=== PATIENT | male | born 1950 | race Caucasian/White ===

== ENCOUNTER 2017-10-03 13:08 | Emergency (ER) | payer MEDICARE ==
--- NOTE | 2017-10-03 15:35 | RAD ---
THREE VIEWS LEFT ANKLE: Indication: Trauma. Comparison: None. FINDINGS: There is an ossific density seen distal to the lateral malleolus, likely sequellae of remote trauma. No definite acute fracture is evident. There is an overlying surface artifact from left ankle wrap wh ich limits image detail. IMPRESSION: No displaced fracture demonstrated. POS: [facility]
--- NOTE | 2017-10-03 15:36 | RAD ---
THREE VIEWS LEFT FOOT: History: Increased pain and swelling. FINDINGS: AP, lateral, and oblique views obtained. No evidence of left foot fractures, subluxations, or bony lesions seen. IMPRESSION: Normal three views left foot. POS: [facility]
== END 2017-10-03 13:50 | disposition home or self-care (01) ==
LOC: ERS 13:08
DX: S90.32XA Contusion of left foot, initial encounter (principal); I25.2 Old myocardial infarction; E78.5 Hyperlipidemia, unspecified; I10 Essential (primary) hypertension; F17.210 Nicotine dependence, cigarettes, uncomplicated; W01.0XXA Fall on same level from slipping, tripping and stumbling without subsequent striking against object, initial encounter
CPT/HCPCS: 99406

== ENCOUNTER 2018-07-28 14:02 | Outpatient (CLI) | payer MEDICARE ==
--- NOTE | 2018-07-28 14:37 | RAD ---
CHEST 2 VIEWS: Date: 07/28/18 HISTORY: Cough and shortness of breath. COMPARISON: Radiograph dated 12/08/15. FINDINGS: Mild blunting left lateral costophrenic sulcus. Lungs are mildly hyperinflated with some scarring in the lower lobes. Multiple midline sternotomy wires. Cardiac silhouette and mediastinal contours within normal limits. IMPRESSION: Chronic findings. No acute intrathoracic abnormality. POS: [facility]
== END 2018-07-28 14:03 | disposition home or self-care (01) ==
LOC: BICRAD 14:02
PROVIDERS: ATTEND Family Medicine
DX: R06.01 Orthopnea (principal); R05 Cough
CPT/HCPCS: 71046

== ENCOUNTER 2018-08-15 08:21 | Emergency (ER) | payer MEDICARE ==
[2018-08-15 09:23] LABS: #Basophils 0.1 thou/uL (0.0-0.2); #Eosinphils 0.3 thou/uL (0.0-0.7); #Lymphocytes 2.8 thou/uL (1.20-3.40); #Monocytes 0.9 thou/uL (0.11-0.59); #Neutrophils 5.4 thou/uL (1.40-6.50); %Basophils 0.8 % (0.0-1.0); %Eosinophils 3.1 % (0.0-10.0); %Lymphocytes 29.8 % (21.0-51.0); %Monocytes 9.6 % (0.0-10.0); %Neutrophils 56.6 % (42.0-75.0); Hemoglobin 16.7 g/dL (14.0-18.0); Mean Corpuscular HGB CONC 32.2 g/dL (32.0-36.0); Mean Corpuscular Volume 99.4 fL (78.0-98.0); Mean Platelet Volume 6.8 fL (7.4-10.4); Platelet Count 192 thou/uL (130-400); RBC Distribution Width 13.3 % (11.5-14.5); Red Blood Cell (RBC) Count 5.22 mill/uL (4.70-6.10); White Blood Cell (WBC) Count 9.5 thou/uL (4.8-10.8)
[2018-08-15 09:44] LABS: ALT (SGPT) 13 U/L (8-55); AST (SGOT) 16 U/L (5-34); Albumin 3.9 g/dL (3.4-4.8); Alkaline Phosphatase 78 U/L (40-150); Anion Gap 13 mmol/L (10-20); BUN (Urea Nitrogen) 14 mg/dL (8.4-25.7); Bilirubin, Total 0.5 mg/dL (0.2-1.2); Calc. Creatinine Clearance 0 mL/min (70-130); Carbon Dioxide 26 mmol/L (23-31); Chloride 104 mmol/L (98-107); Estimated GFR-MDRD 58; Globulin 3.2 g/dL (2.4-3.5); Glucose 91 mg/dL (80-115); Potassium 4.2 mmol/L (3.5-5.1); Protein, Total 7.1 g/dL (5.8-8.1); Sodium 139 mmol/L (136-145)
[2018-08-15] MEDS ORDERED: predniSONE 20 MG TAB ONE (10:03)
--- NOTE | 2018-08-15 10:22 | RAD ---
CHEST ONE VIEW: HISTORY: Pneumonia and COPD. COMPARISON: 07/28/2018 FINDINGS: There is scarring in both lower lobes. The lungs are hyperinflated. Multiple midline sternotomy wir es. The cardiac silhouette is similar. No acute osseous abnormality. IMPRESSION: Similar examination of the chest. No acute intrathoracic abnormality. POS: [facility]
== END 2018-08-15 10:57 | disposition home or self-care (01) ==
LOC: ERS 08:21
DX: J44.9 Chronic obstructive pulmonary disease, unspecified (principal); I25.10 Atherosclerotic heart disease of native coronary artery without angina pectoris; I25.2 Old myocardial infarction; I10 Essential (primary) hypertension; F17.210 Nicotine dependence, cigarettes, uncomplicated; Z71.6 Tobacco abuse counseling
CPT/HCPCS: 71045; 80053; 84484; 85025; 93005; 94640; 99406; J7620

== ENCOUNTER 2019-05-06 13:37 | Emergency (ER) | payer MEDICARE | END 2019-05-06 14:18 | disposition home or self-care (01) | LOC: ERS 13:37 | DX: M25.531 Pain in right wrist (principal); I25.10 Atherosclerotic heart disease of native coronary artery without angina pectoris; I25.2 Old myocardial infarction; E78.5 Hyperlipidemia, unspecified; I10 Essential (primary) hypertension; F17.210 Nicotine dependence, cigarettes, uncomplicated | CPT/HCPCS: 99281 ==

== ENCOUNTER 2020-01-15 09:38 | Outpatient (CLI) | payer MEDICARE ==
--- NOTE | 2020-01-15 11:08 | CT ---
CT CHEST WITHOUT CONTRAST: Axial tomograms obtained with multiplanar reconstruction. Low-dose screening protocol was followed. INDICATION: History of tobacco use. COPD. COMPARISON: No comparison. FINDINGS: There is hyperexpansion. There are chronic lung parenchymal changes with emphysematous changes. Num erous small bullae and blebs are seen along the pleural surface anterolaterally. There is interstiti al thickening in the periphery of both lungs. Tiny calcified granuloma in the right lung base measur ing 3 mm. Tiny calcified granuloma in the left lower lobe also measuring in the 3-4 mm range. No evidence of solid pulmonary mass or nodule. The mediastinum is unremarkable. Images through the upper abdomen unremarkable. Osseous structures show degenerative spine changes and postop sternotomy change. IMPRESSION: Chronic lung changes with emphysematous changes including centrilobular and paraseptal emphysema. In terstitial thickening and fibrotic stranding prominent in the lung bases. Scattered calcified granul jaswinder. Lung RADS 2, recommend annual low-dose screening chest CT. POS: [facility]
== END 2020-01-15 09:39 | disposition home or self-care (01) ==
LOC: BICCT 09:38
PROVIDERS: ATTEND Family Medicine
DX: Z12.2 Encounter for screening for malignant neoplasm of respiratory organs (principal); F17.210 Nicotine dependence, cigarettes, uncomplicated; J43.9 Emphysema, unspecified; J84.10 Pulmonary fibrosis, unspecified; R91.8 Other nonspecific abnormal finding of lung field
CPT/HCPCS: G0297

== ENCOUNTER 2020-05-29 08:38 | Outpatient (CLI) | payer MEDICARE ==
--- NOTE | 2020-05-29 09:57 | ULT ---
ABDOMNIAL AORTIC ULTRASOUND: HISTORY: Abdominal aortic aneurysm screening. FINDINGS: The AP dimension of the proximal aorta is 3 cm, mid aorta 2.8, and distal 2.3 cm. There is some mild dilatation of both common iliac arteries, the right measuring 1.6 cm and the left measuring 2 cm in size. IMPRESSION: 1. No evidence of abdominal aortic aneurysm. 2. 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 POS: [facility]
== END 2020-05-29 08:39 | disposition home or self-care (01) ==
LOC: BICULT 08:38
PROVIDERS: ATTEND Family Medicine
DX: Z13.6 Encounter for screening for cardiovascular disorders (principal); I72.3 Aneurysm of iliac artery
CPT/HCPCS: 36415; 76775; 80053; 80061

== ENCOUNTER 2020-07-11 08:00 | Outpatient (CLI) | payer MEDICARE ==
[2020-07-12 00:15] LABS: SARS-CoV-2 PCR by NAA Not Detected (NotDetected)
== END 2020-07-11 08:01 | disposition home or self-care (01) ==
LOC: LABBT 08:00
PROVIDERS: ATTEND Internal Medicine Gastroenterology
DX: Z01.812 Encounter for preprocedural laboratory examination (principal); Z12.11 Encounter for screening for malignant neoplasm of colon; Z20.822 Contact with and (suspected) exposure to COVID-19
CPT/HCPCS: U0003; U0005; 87635

== ENCOUNTER 2020-07-16 06:11 | Day surgery (SDC) | payer MEDICARE ==
[2020-07-15 12:18] VITALS: BMI 23.6
--- NOTE | 2020-07-15 22:06 | HP ---
HISTORY OF PRESENT ILLNESS: Mr. Pete Almeida is a 70-year-old male comes for a colonoscopy for colon cancer screening. The patient had no specific GI symptoms. Bowel movements are regular. FAMILY HISTORY: He has no family history of colon cancer. ALLERGIES: NONE. SOCIAL HISTORY: Smoker. He smokes a packet of cigarettes per day. No alcohol intake. PAST MEDICAL HISTORY: 1. Hypertension. 2. Hyperlipidemia. 3. COPD. 4. Status post coronary artery bypass graft. 5. Chronic back pain. 6. History of heart murmur. 7. Depression. 8. Arthritis. PHYSICAL EXAMINATION: VITAL SIGNS: Weight is 161 pounds, pulse is 74, and blood pressure is 140/80. HEENT: Conjunctivae are clear. CARDIOVASCULAR: Normal heart sounds. LUNGS: Clear to auscultation. ABDOMEN: Soft. No organomegaly. No tenderness. No masses. ADMITTING DIAGNOSIS: A 70-year-old male comes for a colonoscopy for colon cancer screening. Job ID: [id number]
[2020-07-16] MEDS ORDERED: PROPOFOL 200 MG/20 ML VIAL ONE (09:03)
[2020-07-16] MEDS ORDERED: Midazolam HCl 2 mg/2 ml Vial ONE (09:11)
--- NOTE | 2020-07-16 11:23 | OP ---
DATE OF PROCEDURE: 07/16/2020 PROCEDURE PERFORMED: Colonoscopy with polypectomy. PREOPERATIVE DIAGNOSIS: Colon cancer. POSTOPERATIVE DIAGNOSES: 1. Sessile hepatic flexure polyp measuring 1 cm. 2. Left-sided diverticular disease. 3. Hemorrhoids. 4. Poor prep. Although water was irrigated and washed out, some of the areas could not be visualized. DESCRIPTION OF PROCEDURE: The patient was placed on his left lateral position and was given sedation by Anesthesia Department. A rectal exam was done. The scope was advanced into the rectum. No lesions felt on rectal exam. A [employer]ax video colonoscope was introduced into the rectum and advanced all the way to the cecum. The prep was not very satisfactory. He had pockets of stool right from the rectum all the way to the right colon. Although water was irrigated and washed out, some of the areas could not be seen. The ileocecal area, cecum, ascending colon, no pathology seen except for some retained stool. 1 cm size sessile polyp of the hepatic flexure removed with snare cautery with good hemostasis. Withdrawal of scope in the hepatic flexure down the transverse colon, splenic flexure, descending colon, sigmoid colon showed no pathology except for scattered left-sided diverticula. Retroflexion of scope in the rectum showed hemorrhoids. DISCHARGE PLANNING: This is a 70-year-old male referred to me by Dr. Frey for a colonoscopy for colon cancer screening. He underwent colonoscopy with polypectomy. It revealed only a sessile polyp in hepatic flexure. Overall, the quality of prep was not very good. DISCHARGE RECOMMENDATIONS: The patient advised to call me if he develops abdominal pain, hematochezia, or fever. Consider repeat colonoscopy either later this year or early next year. Job ID: [id number]
== END 2020-07-16 10:45 | disposition home or self-care (01) ==
LOC: SDC 06:11
PROVIDERS: ATTEND Internal Medicine Gastroenterology
PROC: 0DBL8ZZ Excision of Transverse Colon, Via Natural or Artificial Opening Endoscopic (ICD-10-PCS; principal; 2020-07-16)
DX: Z12.11 Encounter for screening for malignant neoplasm of colon (principal); K63.5 Polyp of colon; K57.30 Diverticulosis of large intestine without perforation or abscess without bleeding; K64.9 Unspecified hemorrhoids; F17.210 Nicotine dependence, cigarettes, uncomplicated; I10 Essential (primary) hypertension; E78.5 Hyperlipidemia, unspecified; J44.9 Chronic obstructive pulmonary disease, unspecified; G89.29 Other chronic pain; M54.9 Dorsalgia, unspecified; F32.9 Major depressive disorder, single episode, unspecified; M19.90 Unspecified osteoarthritis, unspecified site; Z79.82 Long term (current) use of aspirin; Z79.899 Other long term (current) drug therapy; Z95.1 Presence of aortocoronary bypass graft
CPT/HCPCS: 88305; J2250; J2704

== ENCOUNTER 2021-02-26 15:14 | Outpatient (CLI) | payer MEDICARE | END 2021-02-26 15:15 | disposition home or self-care (01) | LOC: BICCT 15:14 | PROVIDERS: ATTEND Family Medicine | DX: Z12.2 Encounter for screening for malignant neoplasm of respiratory organs (principal); F17.219 Nicotine dependence, cigarettes, with unspecified nicotine-induced disorders; J43.9 Emphysema, unspecified | CPT/HCPCS: 71271 ==

== ENCOUNTER 2021-05-14 09:21 | Outpatient (CLI) | payer MEDICARE | END 2021-05-14 09:22 | disposition home or self-care (01) | LOC: BICRAD 09:21 | PROVIDERS: ATTEND Family Medicine | DX: R05.9 Cough, unspecified (principal) | CPT/HCPCS: 71046 ==

== ENCOUNTER 2022-06-23 10:30 | Outpatient (CLI) | payer MEDICARE | END 2022-06-23 10:31 | disposition home or self-care (01) | LOC: BICCT 10:30 | PROVIDERS: ATTEND Family Medicine | DX: Z12.2 Encounter for screening for malignant neoplasm of respiratory organs (principal); F17.219 Nicotine dependence, cigarettes, with unspecified nicotine-induced disorders | CPT/HCPCS: 36415; 71271; 80053; 80061; 81001; 85025 ==

== ENCOUNTER 2022-09-15 13:32 | Outpatient (CLI) | payer MEDICARE | END 2022-09-15 13:33 | disposition home or self-care (01) | LOC: ULT 13:32 | PROVIDERS: ATTEND Family Medicine | DX: R09.89 Other specified symptoms and signs involving the circulatory and respiratory systems (principal) | CPT/HCPCS: 93880 ==

== ENCOUNTER 2023-01-11 09:18 | Observation (INO) | payer MEDICARE ==
[2023-01-11 10:07] LABS: #Basophils 0.1 thou/uL (0.0-0.2); #Eosinphils 0.2 thou/uL (0.0-0.7); #Monocytes 1.1 thou/uL (0.11-0.59); #Neutrophils 7.1 thou/uL (1.40-6.50); %Basophils 0.5 % (0.0-1.0); %Eosinophils 1.9 % (0.0-10.0); %Lymphocytes 27.5 % (21.0-51.0); %Monocytes 9.6 % (0.0-10.0); %Neutrophils 60.2 % (42.0-75.0); Hemoglobin 15.2 g/dL (14.0-18.0); Mean Corpuscular HGB CONC 33.4 g/dL (32.0-36.0); Mean Corpuscular Hemoglobin 31.4 pg (27.0-31.0); Mean Platelet Volume 9.2 fL (7.4-10.4); Platelet Count 202 10x3/uL (130-400); Red Blood Cell (RBC) Count 4.84 mill/uL (4.70-6.10); White Blood Cell (WBC) Count 11.8 10x3/uL (4.8-10.8)
[2023-01-11 10:34] LABS: ALT (SGPT) 12 U/L (8-55); AST (SGOT) 17 U/L (5-34); Alkaline Phosphatase 76 U/L (40-110); Anion Gap 10 mmol/L (10-20); BUN (Urea Nitrogen) 11 mg/dL (8.4-25.7); Bilirubin, Total 0.5 mg/dL (0.2-1.2); Calc. Creatinine Clearance 0 mL/min (70-130); Calcium 9.6 mg/dL (7.8-10.44); Carbon Dioxide 25 mmol/L (23-31); Chloride 107 mmol/L (98-107); Estimated GFR 78; Glucose 93 mg/dL (83-110); Lipase 17 U/L (8-78); Potassium 4.1 mmol/L (3.5-5.1); Sodium 138 mmol/L (136-145)
[2023-01-11 10:48] LABS: CKMB 2.3 ng/mL (0-6.6)
[2023-01-11 11:51] LABS: Bacteria/HPF None Seen HPF (None Seen); Bilirubin Negative (Negative); Blood, Urine Negative (Negative); CAUTI Indications for Culture Alt mental st,lethar; Clarity Clear (Clear); Glucose, Urine (Dipstick) Normal (Negative); Ketone, Urine Negative (Negative); Leukocyte Negative Leu/uL (Negative); Nitrite Negative (Negative); Protein, Urine (Dipstick) Negative (Neg-Trace); RBC/HPF None Seen HPF (0-3); Specific Gravity, Urine 1.014 (1.002-1.036); Squamous Epithelial None Seen HPF (0-3); Urobilinogen Normal mg/dL (Less than 2); WBC/HPF 0-3 HPF (0-3)
[2023-01-11 11:52] LABS: Urine Culture Reflex No No
[2023-01-11 14:25] LABS: Troponin I 0.018 ng/mL (< 0.028)
[2023-01-11] MEDS ORDERED: Ondansetron ODT 4 MG TAB PO PRN (14:27)
[2023-01-11] MEDS ORDERED: Acetaminophen 325 MG TAB PO PRN (14:27)
[2023-01-11] MEDS ORDERED: Benzonatate 100 MG CAP PO PRN (14:27)
[2023-01-11] MEDS ORDERED: Ipratropium/Albuterol 3 ML NEB NEB PRN (14:27)
[2023-01-11] MEDS ORDERED: Ondansetron PF 4 MG/2 ML Vial IVP PRN (14:27)
[2023-01-11] MEDS ORDERED: Docusate 100 MG CAP PO PRN (14:27)
[2023-01-11] MEDS ORDERED: Electrolyte Replacement Protocol 1 EACH FS SCH (14:30)
[2023-01-11] MEDS ORDERED: cefTRIAXone\\ROCEPHIN 1 GM in Sodium Chloride 0.9% 100 ML IVPB SCH (15:00)
[2023-01-11] MEDS ORDERED: predniSONE 20 MG TAB PO SCH (15:00)
[2023-01-11 17:40] LABS: Troponin I 0.018 ng/mL (< 0.028)
[2023-01-11 18:26] VITALS: BMI 22.5
[2023-01-11] MEDS: Ipratropium/Albuterol 3 ML NEB NEB SCH (18:57)
[2023-01-11] MEDS: Mometasone/Formoterol 200/5 60 PUFF INH SCH (18:58)
[2023-01-12] MEDS: Ipratropium/Albuterol 3 ML NEB NEB SCH ×4 (00:24→18:49)
[2023-01-12 05:47] LABS: #Monocytes 0.3 thou/uL (0.11-0.59); %Lymphocytes 17.7 % (21.0-51.0); Hemoglobin 14.4 g/dL (14.0-18.0); Mean Corpuscular HGB CONC 33.7 g/dL (32.0-36.0); Mean Corpuscular Hemoglobin 31.4 pg (27.0-31.0); Mean Corpuscular Volume 93.2 fl (78.0-98.0); Mean Platelet Volume 9.1 fL (7.4-10.4); Platelet Count 186 10x3/uL (130-400); RBC Distribution Width 16.9 % (11.5-14.5); Red Blood Cell (RBC) Count 4.58 mill/uL (4.70-6.10); White Blood Cell (WBC) Count 8.9 10x3/uL (4.8-10.8)
[2023-01-12 06:12] LABS: Anion Gap 15 mmol/L (10-20); BUN (Urea Nitrogen) 12 mg/dL (8.4-25.7); Calc. Creatinine Clearance 67 mL/min (70-130); Calcium 9.2 mg/dL (7.8-10.44); Carbon Dioxide 18 mmol/L (23-31); Chloride 108 mmol/L (98-107); Estimated GFR 83; Glucose 126 mg/dL (83-110); Magnesium 2.1 mg/dL (1.6-2.6); Potassium 3.9 mmol/L (3.5-5.1); Sodium 137 mmol/L (136-145)
[2023-01-12] MEDS: Mometasone/Formoterol 200/5 60 PUFF INH SCH ×2 (06:36→18:50)
[2023-01-12] MEDS ORDERED: Albuterol 200 PUFF (6.7GM INHALER) INH PRN (08:21)
[2023-01-12] MEDS ORDERED: Non-Formulary Item 1 EACH (Pantoprazole Sodium [Pantoprazole Sodium] 20 MG Tablet.Dr) PO SCH (09:00)
[2023-01-12] MEDS ORDERED: predniSONE 20 MG TAB PO SCH (09:00)
[2023-01-12] MEDS ORDERED: Aspirin Chewable 81 MG TAB PO SCH (09:00)
[2023-01-12] MEDS ORDERED: Rosuvastatin 20 MG TAB PO SCH (09:00)
[2023-01-12] MEDS ORDERED: Ezetimibe 10 MG TAB PO SCH (09:00)
[2023-01-12] MEDS ORDERED: Azithromycin 250 MG TAB PO SCH (09:00)
[2023-01-12 12:19] VITALS: TEMP 98
[2023-01-12 12:46] VITALS: BP 145/68
== END 2023-01-12 19:10 | disposition home or self-care (01) ==
LOC: ERS 09:18 → 2SW 13:25
PROVIDERS: ADMIT Internal Medicine; ATTEND Internal Medicine
DX: R53.1 Weakness (principal); I08.3 Combined rheumatic disorders of mitral, aortic and tricuspid valves; R55 Syncope and collapse; R42 Dizziness and giddiness; F17.210 Nicotine dependence, cigarettes, uncomplicated; I25.10 Atherosclerotic heart disease of native coronary artery without angina pectoris; E78.5 Hyperlipidemia, unspecified; Z95.5 Presence of coronary angioplasty implant and graft; Z79.82 Long term (current) use of aspirin; Z79.899 Other long term (current) drug therapy
CPT/HCPCS: 70450; 71045; 80048; 80053; 81001; 82553; 83690; 83735; 83880; 84443; 84484 ×2; 85025 ×2; 93005; 93306; 94640 ×4; 94760; 96361; 96372; 96374; 99285; G0378 ×3; 36415; 96360; J0696; J1650; J3490; J7512; J7620

== ENCOUNTER 2023-01-19 14:03 | Outpatient (CLI) | payer MEDICARE ==
[2023-01-19 15:17] LABS: #Basophils 0.1 10x3/uL (0.0-0.2); #Eosinphils 0.2 10x3/uL (0.0-0.5); #Monocytes 1.3 10x3/uL (0.0-1.1); %Basophils 0.4 % (0.0-2.0); %Eosinophils 1.6 % (0.0-6.0); %Lymphocytes 32.4 % (18.0-47.0); %Monocytes 9.9 % (0.0-10.0); %Neutrophils 55.2 % (40.0-75.0); Hemoglobin 15.4 g/dL (13.5-17.5); Mean Corpuscular HGB CONC 33.7 g/dL (32.0-36.0); Mean Corpuscular Hemoglobin 30.6 pg (27.0-33.0); Mean Corpuscular Volume 90.9 fl (81.2-95.1); Mean Platelet Volume 9.5 fl (7.4-10.4); Platelet Count 218 10x3/uL (150-450); RBC Distribution Width 16.2 % (11.5-14.5); Red Blood Cell (RBC) Count 5.03 10x6/uL (4.32-5.72); White Blood Cell (WBC) Count 12.8 10x3/uL (3.5-10.5)
[2023-01-19 15:29] LABS: Cardiac Risk 2.6 (Less than 4.5)
[2023-01-19 15:34] LABS: ALT (SGPT) 21 U/L (8-55); AST (SGOT) 19 U/L (5-34); Albumin 4.1 g/dL (3.4-4.8); Alkaline Phosphatase 68 U/L (40-110); Anion Gap 14 mmol/L (10-20); BUN (Urea Nitrogen) 15 mg/dL (8.4-25.7); Bilirubin, Total 0.6 mg/dL (0.2-1.2); Calc. Creatinine Clearance 0 mL/min (70-130); Calcium 9.4 mg/dL (7.8-10.44); Carbon Dioxide 23 mmol/L (23-31); Chloride 108 mmol/L (98-107); Estimated GFR 76; Globulin 2.4 g/dL (2.4-3.5); Glucose 97 mg/dL (83-110); Potassium 4.3 mmol/L (3.5-5.1); Protein, Total 6.5 g/dL (5.8-8.1); Sodium 141 mmol/L (136-145)
== END 2023-01-19 14:04 | disposition home or self-care (01) ==
LOC: LABBT 14:03
PROVIDERS: ATTEND Internal Medicine Cardiovascular Disease
DX: Z01.812 Encounter for preprocedural laboratory examination (principal); I35.0 Nonrheumatic aortic (valve) stenosis
CPT/HCPCS: 80053; 80061; 85025

== ENCOUNTER 2023-01-20 05:26 | Day surgery (SDC) | payer MEDICARE ==
[2023-01-19 14:52] VITALS: BMI 22.7
[2023-01-20] MEDS ORDERED: Heparin 10,000 UNITS/ 10 ML VIAL ONE (06:10)
[2023-01-20] MEDS ORDERED: Midazolam HCl 2 mg/2 ml Vial ONE (06:10)
[2023-01-20] MEDS ORDERED: Lidocaine 1% (PF) 30 ML VIAL ONE (06:10)
[2023-01-20] MEDS ORDERED: Nitroglycerin 50 MG/250 ML BOT 0 ML ONE (06:10)
[2023-01-20] MEDS ORDERED: fentaNYL 50 mcg/mL 1 mL Vial ONE (06:10)
[2023-01-20] MEDS ORDERED: Protamine Sulfate 50 MG/5 ML VIAL ONE (08:41)
[2023-01-20] MEDS ORDERED: Iopamidol 370 76% 100 ML VIAL ONE (13:41)
== END 2023-01-20 15:55 | disposition home or self-care (01) ==
LOC: SDC 05:26
PROVIDERS: ATTEND Internal Medicine Cardiovascular Disease
DX: I35.0 Nonrheumatic aortic (valve) stenosis (principal); R61 Generalized hyperhidrosis; J44.9 Chronic obstructive pulmonary disease, unspecified; R00.1 Bradycardia, unspecified; I25.10 Atherosclerotic heart disease of native coronary artery without angina pectoris; K21.9 Gastro-esophageal reflux disease without esophagitis; I10 Essential (primary) hypertension; E78.5 Hyperlipidemia, unspecified; F17.210 Nicotine dependence, cigarettes, uncomplicated; Z79.899 Other long term (current) drug therapy; Z79.82 Long term (current) use of aspirin; Z95.1 Presence of aortocoronary bypass graft; Z91.199 Patient's noncompliance with other medical treatment and regimen due to unspecified reason
CPT/HCPCS: 85347; C1751; C1769 ×3; J3010; 93461; 99152; 99153; C1894; J1644; J2001; J2250; J2720; Q9967

== ENCOUNTER 2024-07-07 17:34 | Inpatient (IN) | payer MEDICARE, OTHER ==
[~2024-07-07 17:34] MED LIST: Iopamidol-370 76% 500 ML MDV (1 ML CHARGE) ONE
[2024-07-07 18:09] LABS: #Basophils 0.06 10x3/uL (0.0-0.2); %Basophils 0.6 % (0.0-1.0); %Eosinophils 3.9 % (0.0-10.0); %Lymphocytes 41.8 % (21.0-51.0); %Monocytes 12.1 % (0.0-10.0); %Neutrophils 41.3 % (42.0-75.0); Hematocrit 42.3 % (42.0-52.0); Hemoglobin 14.7 g/dL (14.0-18.0); Mean Corpuscular HGB CONC 34.8 g/dL (32.0-36.0); Mean Corpuscular Hemoglobin 30.9 pg (27.0-31.0); Mean Corpuscular Volume 89.1 fL (78.0-98.0); Platelet Count 169 10x3/uL (130-400); Red Blood Cell (RBC) Count 4.75 mill/uL (4.70-6.10)
[2024-07-07 18:24] LABS: ALT (SGPT) 13 U/L (8-55); AST (SGOT) 16 U/L (5-34); Albumin 3.7 g/dL (3.4-4.8); Alkaline Phosphatase 74 U/L (40-110); Anion Gap 13 mmol/L (10-20); BUN (Urea Nitrogen) 13 mg/dL (8.4-25.7); Bilirubin, Total 0.4 mg/dL (0.2-1.2); Calc. Creatinine Clearance 0 mL/min (70-130); Calcium 9.1 mg/dL (7.8-10.44); Carbon Dioxide 23 mmol/L (23-31); Chloride 106 mmol/L (98-107); Estimated GFR 73; Globulin 3.4 g/dL (2.4-3.5); Glucose 105 mg/dL (83-110); Potassium 3.9 mmol/L (3.5-5.1); Protein, Total 7.1 g/dL (5.8-8.1); Sodium 138 mmol/L (136-145)
[2024-07-07 18:35] LABS: PTT 27.5 sec (22.9-36.1); Prothrombin Time 13.2 sec (12.0-14.7)
[2024-07-07] MEDS ORDERED: Aspirin Chewable 81 MG TAB ONE (18:50)
[2024-07-07] MEDS ORDERED: Ondansetron PF 4 MG/2 ML Vial IVP PRN ×2 (20:00→20:08)
[2024-07-07] MEDS ORDERED: Acetaminophen 325 MG TAB PO PRN ×2 (20:00→20:08)
[2024-07-07] MEDS ORDERED: Ondansetron ODT 4 MG TAB SL PRN (20:00)
[2024-07-07] MEDS ORDERED: hydrALAZINE 20 MG/ML VIAL SLOW IVP PRN (20:08)
[2024-07-07] MEDS ORDERED: Senokot S 8.6-50 MG TAB PO PRN (20:08)
[2024-07-07] MEDS ORDERED: Calcium Carbonate 500 MG ChewTAB PO PRN (20:08)
[2024-07-07] MEDS: Sodium Chloride 0.9% 1,000 ML IV SCH (21:55)
[2024-07-07] MEDS: Ranolazine ER 500 MG TAB PO SCH (21:56)
[2024-07-07 23:29] LABS: Troponin I 0.036 ng/mL (< 0.028)
[2024-07-08 02:14] VITALS: BMI 22.7
[2024-07-08 03:40] LABS: #Basophils 0.06 10x3/uL (0.0-0.2); %Basophils 0.5 % (0.0-1.0); %Eosinophils 3.3 % (0.0-10.0); %Monocytes 9.8 % (0.0-10.0); Hematocrit 39.1 % (42.0-52.0); Hemoglobin 13.3 g/dL (14.0-18.0); Mean Corpuscular Volume 91.1 fL (78.0-98.0); Mean Platelet Volume 9.4 fL (7.4-10.4); Platelet Count 173 10x3/uL (130-400); RBC Distribution Width 16.4 % (11.5-14.5); Red Blood Cell (RBC) Count 4.29 mill/uL (4.70-6.10)
[2024-07-08 03:55] LABS: ALT (SGPT) 11 U/L (8-55); AST (SGOT) 15 U/L (5-34); Albumin 3.4 g/dL (3.4-4.8); Alkaline Phosphatase 65 U/L (40-110); Anion Gap 11 mmol/L (10-20); BUN (Urea Nitrogen) 11 mg/dL (8.4-25.7); Bilirubin, Total 0.5 mg/dL (0.2-1.2); Calc. Creatinine Clearance 66 mL/min (70-130); Calcium 8.9 mg/dL (7.8-10.44); Carbon Dioxide 24 mmol/L (23-31); Cardiac Risk 2.5 (Less than 4.5); Chloride 110 mmol/L (98-107); Cholesterol 108 mg/dl (< 200 Desired); Estimated GFR 82; Globulin 3.2 g/dL (2.4-3.5); Glucose 81 mg/dL (83-110); HDL Cholesterol 44 mg/dL (>60 Neg Risk); Hemoglobin A1c 5.3 % (4.0-6.0); LDL Cholesterol, Calculated 52 mg/dL; Potassium 3.6 mmol/L (3.5-5.1); Protein, Total 6.6 g/dL (5.8-8.1); Sodium 141 mmol/L (136-145); Triglycerides 60 mg/dL (Less than 150)
[2024-07-08 04:29] LABS: Troponin I 0.044 ng/mL (< 0.028)
[2024-07-08] MEDS: Mometasone 200 MCG/Formoterol 5 MCG 120 PUFF INHALER INH SCH (07:42)
[2024-07-08] MEDS ORDERED: Isosorbide Mononitrate 60 MG ER.TAB PO SCH (09:00)
[2024-07-08] MEDS: Aspirin Chewable 81 MG TAB PO SCH (09:00)
[2024-07-08] MEDS: Rosuvastatin 20 MG TAB PO SCH (09:00)
[2024-07-08] MEDS: Ezetimibe 10 MG TAB PO SCH (09:00)
[2024-07-08] MEDS: Nicotine 14 MG PATCH TD SCH (09:00)
[2024-07-08] MEDS: Enoxaparin 40 MG (0.4 mL) SYRINGE SC SCH (09:00)
[2024-07-09] MEDS ORDERED: Aspirin Chewable 81 MG TAB PO SCH (08:04)
[2024-07-09] MEDS: Aspirin Chewable 81 MG TAB PO SCH (08:57)
[2024-07-09] MEDS: Clopidogrel Bisulfate 75 MG TAB PO SCH (08:57)
[2024-07-09 11:37] VITALS: BP 126/79; TEMP 97.8
== END 2024-07-09 11:55 | disposition home or self-care (01) | DRG 66 ==
LOC: SUATTDRO 17:34 → ERS 17:34 → 2SE 19:38 → OBSVTOIN 07-08 14:27
PROVIDERS: ADMIT Internal Medicine; ATTEND Internal Medicine
DX: I63.512 Cerebral infarction due to unspecified occlusion or stenosis of left middle cerebral artery (principal); J44.9 Chronic obstructive pulmonary disease, unspecified; E78.5 Hyperlipidemia, unspecified; I10 Essential (primary) hypertension; I35.0 Nonrheumatic aortic (valve) stenosis; I25.10 Atherosclerotic heart disease of native coronary artery without angina pectoris; F17.210 Nicotine dependence, cigarettes, uncomplicated; G47.33 Obstructive sleep apnea (adult) (pediatric); K21.9 Gastro-esophageal reflux disease without esophagitis; Z71.6 Tobacco abuse counseling; Z95.1 Presence of aortocoronary bypass graft; Z98.890 Other specified postprocedural states; Z91.148 Patient's other noncompliance with medication regimen for other reason
CPT/HCPCS: 36415; 36416; 70450; 70496; 70498; 70551; 71045; 71250; 80053; 80061; 83036; 84443; 84484; 85025; 85610; 85730; 93005; 93306; 94760; 96372; G0378; J1650; J7030; Q9967